=== PATIENT | female | born 1940 | race Caucasian/White ===

== ENCOUNTER 2023-09-15 06:47 | Emergency (ER) | payer MEDICARE, BC, SELFPAY ==
[2023-09-15 07:08] VITALS: BP 133/74
[2023-09-15 08:00] VITALS: BP 162/72
[2023-09-15] MEDS: MOTRIN 600 MG PO (08:24)
[2023-09-15] MEDS: PERCOCET 5/325 1 TABLET PO (08:24)
[2023-09-15 08:26] VITALS: BMI 21.1
[2023-09-15 08:30] VITALS: BP 162/84
--- NOTE | 2023-09-15 08:45 | ED.GENMED ---
History of Present Illness
General
Chief Complaint: Musculo-Skeletal Complaint
Source: patient
Exam Limitations: none
Time Seen by Provider: 09/15/23 08:05
Nursing documentation reviewed up to this point in time: agreed with
History of Present Illness
History of Present Illness:
The patient is an 83-year-old female with past medical history of low back surgery who comes in with complaints of severe bilateral neck pain. Patient reports that 2 mornings ago, she woke up with severe neck stiffness on both sides. Patient
reports that is hard for her to move her head from [id number]. She denies headache and vision changes. She denies tingling, numbness and weakness of her arms and legs. She reports she tried to take a muscle relaxer and Tylenol at home without
any relief. Patient reports that her neck feels so stiff that she is unable to move it and it is difficult for her to move around. Patient reports she generally does not have neck pain. Patient denies sore throat, rash and swollen glands
Past History
Past History
ED Past Medical History: Hypothyroidism, Psychiatric (depression) and Other (Chronic back pain)
ED Past Surgical History: Other (Low back surgery)
Social History
Tobacco: Former smoker
Alcohol: Occasional
Drug: None
Personal: Other
Living: alone
Employment: Retired
Family History
Family History: Other (Noncontributory)
Phy Exam
Physical Exam
Physical Exam:
Physical Exam
General: Patient sits upright with her neck completely still, with her head completely straight. Seems very hesitant to turn her head from [id number]. Patient appears nontoxic
Neck: No midline C-spine tenderness. Soft tissue tenderness along trapezius muscles bilaterally without any erythema, swelling or deformity. No cervical lymphadenopathy
Heart: s1/s2 regular rate and rhythm,
Lungs: no acute respiratory distress. clear bilaterally
Abdomen: Soft, no pulsatile mass
Neuro: alert and oriented. no focal neurological deficits. Face appears symmetric. Extraocular muscles intact. PERRL, 5 out of 5 strength in all extremities without drift
Skin: no rash
Psychiatric: well kept. interactive and cooperative
Extremities: no edema. Strong pulses of bilateral hands. Excellent cap refill bilateral hands.
Course
Orders/Labs/Results
Orders:
Orders
09/15/23 08:17
Ibuprofen [Motrin] 400 mg PO NOW STA
Ibuprofen [Motrin] 600 mg PO NOW STA
Oxycodone/Acetaminophen [Percocet 5/325] 1 tablet PO NOW STA
09/15/23 08:18
Cervical Spine 4 or 5 Vw [CR Cervical Spine 4 Or 5 Vw] Urgent
Comment:
Reason For Exam: bilateral neck pain for 2 days
Vital Signs
Initial and Last Documented VS:
Initial Vital Signs
Temp Pulse Resp BP Pulse Ox
98.1 F 75 16 133/74 98
09/15/23 07:08 09/15/23 07:08 09/15/23 07:08 09/15/23 07:08 09/15/23 07:08
Last Documented Vital Signs
Temp Pulse Resp BP Pulse Ox
98.1 F 71 21 162/84 96
09/15/23 07:08 09/15/23 08:34 09/15/23 08:34 09/15/23 08:30 09/15/23 08:00
MDM/Problems Addressed
Differential Diagnosis Includes:
Torticollis/musculoskeletal spasm, cervical radiculopathy
MDM/Problems Addressed:
Patient presents with acute neck pain
Acute Exacerbation and/or Progression of Chronic Illness:
Patient is acutely hypertensive likely due to pain
*Radiology
Radiology exam reviewed: preliminary read by ED provider (Cervical spine x-ray reviewed by me. No acute fracture seen) and radiology read reviewed
*Pulse Oximetry
Patient hypoxic: no
*EKG
Interpreted by ED Provider?: NA
*Tool And Fixture Repairer Interpretation
Rate: normal
Interpretation: normal
Rhythm: sinus
*Critical Care Note
Total Time (30-74mins, 75-104mins- exclusive of procedures): Not Applicable
Data Reviewed
Review of Other/Old Records Reveals: Radiology Studies (MRI of lumbar spine reviewed from 2021 which shows significant central canal stenosis)
Source: patient
Patient Management
Social determinants of health affecting care: Living situation and Strong social support
Escalation/DeEscalation of care consider admission/obs:
Patient feels so much better and is able to move her head and neck around freely. There is no sign of deep space infection. There are no neurological concerns to suggest vascular dissection. Patient likely has torticollis or cervical muscle spasm
of some kind.
ED Attending Note
-
Portions of this chart may have been created with voice recognition software.� Occasional wrong word or��sound alike� substitutions may have occurred due to the inherent limitations of voice recognition software.
Discharge Plan
Departure
Patient Disposition: Home (Routine Discharge)
Date of Disposition: 09/15/23
Time of Disposition: 10:23
Patient with high blood pressure during this ER visit?: Yes
Condition: Good
Covid-19: Not Applicable
Discharge Problem:
Acute neck pain
Instructions: Neck Pain ED, BLOOD PRESSURE
Prescriptions:
New
ibuprofen 600 mg tablet
600 mg PO TID PRN (Reason: Pain) Qty: 20 0RF
oxycodone 5 mg tablet
5 mg PO BID PRN (Reason: Pain) Qty: 7 0RF
No Action
sertraline 100 MG tablet
150 mg PO DAILY
bupropion HCl 300 MG tablet extended release 24 hr
300 mg PO DAILY
levothyroxine 100 mcg Tablet
100 mcg PO DAILY
multivitamin Tablet
1 tab PO DAILY
lutein 40 mg Capsule
40 mg PO DAILY
omega 6-rbc-jkl-fish oil [Fish Oil] 1,000 mg (120 mg-180 mg) Capsule
1 cap PO DAILY
cephalexin 500 mg capsule
500 mg PO QID Qty: 28 0RF
doxycycline hyclate 100 mg Tablet,Delayed Release (Dr/Ec)
100 mg PO .BIDX7D Qty: 14 0RF
Rx Instructions:
patient chicken picker on 09/19/22 #14
Referrals:
Evin Decker MD [Family Provider] -
Activity Restrictions/Additional Instructions:
Please take 600 mg of Motrin every 8 hours as needed for pain for the next 48 hours with food to help with the spasming in your neck. If needed, you could also take 1 oxycodone tablet if the pain is severe
Interventions
Interventions:
*Risk Screen - Suicide Last Done: 09/15/23 08:27
*General Assessment Last Done: 09/15/23 08:26
*Neglect/Abuse Screening Last Done: 09/15/23 08:26
*ED COVID-19 Vaccine History Last Done: 09/15/23 08:26
ED-Musculoskeletal Assessment Last Done: 09/15/23 08:28
Discharge Date and Time
Print Language: GREEK
== END 2023-09-15 11:09 | disposition home or self-care (01) ==
LOC: EMR 06:47
PROVIDERS: EMERGENCY PHYSICIAN Emergency Medicine; FAMILY PHYSICIAN Internal Medicine
DX: M54.2 Cervicalgia (principal); E03.9 Hypothyroidism, unspecified; F32.A Depression, unspecified; G89.29 Other chronic pain; M54.9 Dorsalgia, unspecified; I10 Essential (primary) hypertension; Z87.891 Personal history of nicotine dependence
CPT/HCPCS: 99283; 72050

== ENCOUNTER → 2023-12-04 11:41 | Outpatient (REF) | payer MEDICARE, BC, SELFPAY | LOC: RAD 11:41 | PROVIDERS: FAMILY PHYSICIAN Internal Medicine | DX: R07.81 Pleurodynia (principal) | CPT/HCPCS: 71046 ==

== ENCOUNTER 2024-11-22 14:38 | Inpatient (IN) | payer MEDICARE, OTHER, SELFPAY ==
[2024-11-22 10:56] VITALS: BP 136/75
--- NOTE | 2024-11-22 10:59 | ED.GENMED ---
History of Present Illness
<ROSI Britt - Last Filed: 11/22/24 13:37>
General
Chief Complaint: Musculo-Skeletal Complaint
Source: patient
Exam Limitations: none
Time Seen by Provider: 11/22/24 10:54
Nursing documentation reviewed up to this point in time: agreed with
History of Present Illness
History of Present Illness:
Patient is a 4-year-old female who presents to the ER complaint of left hip pain. Patient was outside watering her yard and tripped on her hose landing on her left hip on the patio. She denies hitting her head. She claims of pain to the left hip.
She came via EMS and was given fentanyl and route but continues to have pain. No other injuries. She is not on blood thinners.
Past History
<ROSI Britt - Last Filed: 11/22/24 13:37>
Past History
ED Past Medical History: Hypothyroidism, Psychiatric (depression) and Other (Chronic back pain)
ED Past Surgical History: Other (Low back surgery)
Social History
Tobacco: Former smoker
Alcohol: Occasional
Drug: None
Personal: Other
Living: alone
Employment: Retired
Family History
Family History: Other (Noncontributory)
Phy Exam
<ROSI Britt - Last Filed: 11/22/24 13:37>
General Physical Exam
General Presentation: well appearing
General age: appears stated age
General Skin: warm and dry
General Habitus: normal
General Mental: alert
General Hydration: appears well hydrated
Cardiovascular Exam
Cardiovascular Exam: regular rate/rhythm, no murmur and normal peripheral pulses
Pulmonary Exam
Pulmonary Exam: lungs clear and no respiratory distress
Neurological Exam
Neurological Exam: alert and oriented x3
Musculoskeletal Exam
Musculoskeletal Exam: other (pain with any ROM to left hip )
Skin Exam
Skin Exam: normal color and warm/dry
Psychiatric Exam
Psychiatric Exam: normal mood/affect
Course
<ROSI Britt - Last Filed: 11/22/24 13:37>
Orders/Labs/Results
Orders:
Orders
11/22/24 11:03
0.9% Sodium Chloride 1000 ml [Nss] 1,000 ml IV BOLUS
Morphine Sulfate 4 mg .ROUTE .STK-MED ONE
Morphine Sulfate 4 mg IV NOW STA
Ondansetron Injectable [Zofran] 4 mg .ROUTE .STK-MED ONE
11/22/24 11:49
Morphine Sulfate 4 mg IV NOW STA
11/22/24 11:51
Hip, Left 2-3 Views [CR Hip - LT w/wo Pel 2-3 Vw*] Urgent
Comment:
Reason For Exam: trauma
Include a pelvis x-ray?: Yes
11/22/24 12:18
Cardiac Monitoring- Treatment ONCE
IV Insert/Care/Rem.- Treatment PRN
Complete Blood Count/With Diff Urgent
Comprehensive Metabolic Panel Urgent
HYDROmorphone [Dilaudid] 0.5 mg IV NOW STA
11/22/24 12:19
Electrocardiogram (*1) Stat
Reason for Study: Abdominal Pain
EKG- Treatment ONCE
11/22/24 13:32
HYDROmorphone [Dilaudid] 0.5 mg IV NOW STA
Vital Signs
Initial and Last Documented VS:
Initial Vital Signs
Temp Pulse Resp BP Pulse Ox
98 F 67 18 136/75 99
11/22/24 10:56 11/22/24 10:56 11/22/24 10:56 11/22/24 10:56 11/22/24 10:56
Last Documented Vital Signs
Temp Pulse Resp BP Pulse Ox
98 F 67 18 136/75 99
11/22/24 10:56 11/22/24 10:56 11/22/24 10:56 11/22/24 10:56 11/22/24 10:56
<Ray Frank MD - Last Filed: 11/22/24 12:35>
Orders/Labs/Results
Orders:
Orders
11/22/24 11:03
0.9% Sodium Chloride 1000 ml [Nss] 1,000 ml IV BOLUS
Morphine Sulfate 4 mg .ROUTE .STK-MED ONE
Morphine Sulfate 4 mg IV NOW STA
Ondansetron Injectable [Zofran] 4 mg .ROUTE .STK-MED ONE
11/22/24 11:49
Morphine Sulfate 4 mg IV NOW STA
11/22/24 11:51
Hip, Left 2-3 Views [CR Hip - LT w/wo Pel 2-3 Vw*] Urgent
Comment:
Reason For Exam: trauma
Include a pelvis x-ray?: Yes
11/22/24 12:18
Cardiac Monitoring- Treatment ONCE
IV Insert/Care/Rem.- Treatment PRN
Complete Blood Count/With Diff Urgent
Comprehensive Metabolic Panel Urgent
HYDROmorphone [Dilaudid] 0.5 mg IV NOW STA
11/22/24 12:19
Electrocardiogram (*1) Stat
Reason for Study: Abdominal Pain
EKG- Treatment ONCE
11/22/24 13:32
HYDROmorphone [Dilaudid] 0.5 mg IV NOW STA
Vital Signs
Initial and Last Documented VS:
Initial Vital Signs
Temp Pulse Resp BP Pulse Ox
98 F 67 18 136/75 99
11/22/24 10:56 11/22/24 10:56 11/22/24 10:56 11/22/24 10:56 11/22/24 10:56
Last Documented Vital Signs
Temp Pulse Resp BP Pulse Ox
98 F 67 18 136/75 99
11/22/24 10:56 11/22/24 10:56 11/22/24 10:56 11/22/24 10:56 11/22/24 10:56
<ROSI Britt - Last Filed: 11/22/24 13:37>
MDM/Problems Addressed
Differential Diagnosis Includes:
Not limited to hip fracture, contusion, dislocation
MDM/Problems Addressed:
Patient is an 84-year-old female who sustained a fall injuring her left hip. There is a subcapital left femoral neck fracture. Patient denies hitting her head. She has not on blood thinners. Case discussed ED physician evaluated patient Ortho
made aware
<ROSI Britt - Last Filed: 11/22/24 13:37>
*Radiology
Radiology exam reviewed: radiology read reviewed
*Pulse Oximetry
SaO2: 99
Oxygen Mode of Delivery: Room air
Patient hypoxic: no
*Critical Care Note
Total Time (30-74mins, 75-104mins- exclusive of procedures): Not Applicable
<ROSI Britt - Last Filed: 11/22/24 13:37>
Patient Management
Discussion with other providers: Hole Digger Operator (ortho dR Rivero )
ED Attending Note
<ROSI Britt - Last Filed: 11/22/24 13:37>
-
Portions of this chart may have been created with voice recognition software.� Occasional wrong word or��sound alike� substitutions may have occurred due to the inherent limitations of voice recognition software.
<Ray Frank MD - Last Filed: 11/22/24 12:35>
ED Attending Note
Patient seen and examined by attending physician: Yes
I performed the substantive portion of visit, reviewed & personally made and approve the management plan that is documented in note by myself or JEANINE.: Yes
ED Attending Note:
Patient tripped and fell. Landing on her left hip. No LOC. No syncope. Mild right wrist pain but no other injury. No head injury.
TRAUMA EXAM:
VITAL SIGNS: Vital signs reviewed, cooperative
DISTRESS: No active disease
EYES: Pupils reactive, no orbital trauma
NOSE: No deformity or epistaxis
FACE AND SCALP: No scalp or facial trauma, external canals no blood
NECK: Supple nontender
RESPIRATORY: No distress, no tender chest wall
CARDIAC: Regular rate and rhythm
SKIN: Skin intact no bleeding, color normal
EXTREMITIES: Left hip flexed. Shortened. Significant pain with rotation. Left knee normal. Good distal pulses and color. Very very minimal right wrist tenderness. No other joint abnormalities
NEUROLOGICAL: Alert, oriented, no motor deficits
PSYCH: Mood affect normal
X-ray shows a acute subcapital fracture of the left femoral neck. Keep n.p.o. for now. Referred to orthopedist and hospitalist
Discharge Plan
Departure
Patient Disposition: Admit
Date of Disposition: 11/22/24
Time of Disposition: 13:36
Admit to: Med/Surg
Admit to doctor: hospitalist
Presentation/result/management discussed w/ accepting MD/DO: Hospitalist
Patient with high blood pressure during this ER visit?: Yes
Condition: Fair
Covid-19: Not Applicable
Discharge Problem:
Closed fracture of left hip
Prescriptions:
No Action
sertraline 100 MG tablet
150 mg PO DAILY
bupropion HCl 300 MG tablet extended release 24 hr
300 mg PO DAILY
levothyroxine 100 mcg Tablet
100 mcg PO DAILY
multivitamin Tablet
1 tab PO DAILY
lutein 40 mg Capsule
40 mg PO DAILY
omega 5-ebg-vwa-fish oil [Fish Oil] 1,000 mg (120 mg-180 mg) Capsule
1 cap PO DAILY
cephalexin 500 mg capsule
500 mg PO QID Qty: 28 0RF
doxycycline hyclate 100 mg Tablet,Delayed Release (Dr/Ec)
100 mg PO .BIDX7D Qty: 14 0RF
Rx Instructions:
patient picker and packer on 09/19/22 #14
ibuprofen 600 mg tablet
600 mg PO TID PRN (Reason: Pain) Qty: 20 0RF
oxycodone 5 mg tablet
5 mg PO BID PRN (Reason: Pain) Qty: 7 0RF
Referrals:
Evin Decker MD [Family Provider, Internal Medicine]
Interventions
Interventions:
*Risk Screen - Suicide Last Done: 11/22/24 10:56
*General Assessment Last Done: 11/22/24 10:56
*Neglect/Abuse Screening Last Done: 11/22/24 10:56
ED-Musculoskeletal Assessment Last Done: 11/22/24 11:48
Discharge Date and Time
Print Language: SWEDISH
[2024-11-22 11:00] VITALS: BP 136/75
[2024-11-22] MEDS: MORPHINE SULFATE 4 MG IV ×2 (11:06→11:50)
[2024-11-22] MEDS: NSS 1000 IV (11:06)
[2024-11-22 11:48] VITALS: BMI 21.8
[2024-11-22] MEDS: DILAUDID 0.5 MG IV ×3 (12:23→14:23)
[2024-11-22 13:52] LABS: Hematocrit 31.2 % (37.0-47.0); Hemoglobin 11.5 g/dL (12.0-16.0); Mean Corp Hgb Conc. 36.9 g/dL (33.0-37.0); Mean Corpuscular Volume 94.8 fL (81.0-99.0); Nucleated Red Blood Cells % 0 %; Platelet Count 154 10^3/uL (130-400); Red Cell Dist. Width 14.1 % (11.5-14.5)
--- NOTE | 2024-11-22 13:57 | HPS.HSE ---
Family Physician
-
Family Physician: Evin Decker
Chief Complaint
-
left hip pain
History of Present Illness
Ms. Willy Felix is a 84 yo woman with hx hypothyroidism, depression presents to the ER with left hip pain after a fall in her yard earlier today.
She tripped over a hose. Patient received multiple morphine and Dilaudid in ER and remains in significant pain.
No history CAD or pulmonary issues. No recent chest pain or shortness of breath. No abdominal pain. No LE swelling. Eating and drinking well. She had spine surgery several years ago and reports worsening neuropathy recently.
Medical History
Past Medical History
Past Medical History: Reports Other (Hypothyroidism, Depression)
Past Surgical History: Reports Orthopedic
Social History
Tobacco: Non-smoker
Alcohol: None
Family History
Family History: Not pertinent
Allergies / Home Medications
Allergies reflects when Allergies were last updated in [facility].
Home Medications with original date entered in [facility]
Allergy/Medication List:
Allergies
Allergy/AdvReac Type Severity Reaction Status Date / Time
Sulfa (Sulfonamide Allergy Unknown Unknown-chi Verified 11/13/22 20:42
Antibiotics) lhood
Bees Allergy swelling, Uncoded 11/13/22 20:42
redness
Home Medications
bupropion HCl 300 mg 24 hr tablet, extended release 300 mg PO DAILY Mental Health/Anxiety 03/27/20
sertraline 100 mg tablet 150 mg PO DAILY Mental Health/Anxiety 03/27/20
levothyroxine 100 mcg tablet 100 mcg PO DAILY Thyroid 02/23/22
lutein 40 mg capsule 40 mg PO DAILY Supplement 02/23/22
multivitamin 1 tab PO DAILY Supplement 02/23/22
loratadine 10 mg tablet (Claritin) 10 mg PO DAILY 11/22/24
Review of Systems
-
History Source: Patient
A 12 point ROS was completed and negative except as noted: Yes
Physical Exam
Vital Signs
Vital Signs
Temp Pulse Resp BP Pulse Ox
98 F 67 18 136/75 99
11/22/24 10:56 11/22/24 10:56 11/22/24 10:56 11/22/24 10:56 11/22/24 13:37
Physical Exam
General: No Apparent Distress
HEENT: PERRLA
Respiratory: Clear; No Wheezes
Cardiac: S1/S2 and Regular Rhythm
GI: Soft and Non Tender
Musculoskeletal: No Edema
Skin: Warm and Dry; No Rash
Neuro: AO x 3
Psych: Anxious
Laboratory Results
-
11/22/24 13:45
Data Reviewed
-
Diagnostic Radiology: Report Reviewed by me
Lab Data: Labs Reviewed by me
Impression/Plan
-
Ms. Willy Felix is a 84 yo woman with hx hypothyroidism, depression presents to the ER with left hip pain after a fall in her yard earlier today.
Triage VS: T 98, P 67, RR 18, BP 136/75, SpO2 99%
LABS: WBC 11.7, Hg 11.5, PLT 154, Na
Hip X-Ray
IMPRESSION:
ACUTE SUBCAPITAL FRACTURE of the LEFT FEMORAL NECK.
MAR: Dilaudid, Morphine, Fluids
Acute left femoral neck fracture
-admit to med/surg
-Ortho consulted
-patient medically cleared for surgery; no cardiac history or recent symptoms of ACS
-regular diet, NPO after MN for OR tomorrow
-difficulty with pain control in the ER; she did not respond to morphine or 0.5 dilaudid; will order 1mg Dilaudid IV q 3 hours PRN
-standing Tylenol, ice packs, lidocaine patch
-SCD for DVT PPx pre-op
Neuropathy
-patient reports worsening b/l LE neuropathy over past year
-trial low dose Gabapentin - increase as tolerated
Hypothyroidism
-GLUE DRIER OPERATOR Synthroid
Depression
-GLUE DRIER OPERATOR Wellbutrin
DVT PPx SCD
FULL CODE
[2024-11-22 14:04] LABS: ALT (SGPT) 25 U/L (0-35); AST (SGOT) 23 U/L (14-36); Albumin 3.7 g/dl (3.5-5.0); Alkaline Phosphatase 58 U/L (38-126); Blood Urea Nitrogen 12 mg/dl (7-17); Calcium 8.7 mg/dl (8.4-10.2); Carbon Dioxide 24 mmol/L (22-30); Chloride 109 mmol/L (98-107); Estimated Creatinine Clearance 69 ml/min; Glucose 98 mg/dl (70-99); Potassium 4.1 mmol/L (3.5-5.1); Sodium 136 mmol/L (135-145); Total Protein 6.2 g/dl (6.3-8.2); eGFR > 60.00
[2024-11-22] MEDS: OFIRMEV 100 IV (14:04)
[2024-11-22] MEDS: LIDOCAINE 4% PATCH 1 PATCH TOPICAL (14:35)
--- NOTE | 2024-11-22 15:30 | EDCM ---
CM reviewed chart and met with pt bedside in ED. Lives alone in multistory home, 2 DO, has first floor full bath and stair glide to second floor bedroom.
Independent in ADLs, personal care and ambulation at baseline. No assistive devices. Still driving.
Confirms prescription coverage.
No hx VN or SNF.
PCP: Evin Decker
Pharmacy: [facility]
CM will continue to follow for all discharge planning needs.
[2024-11-22] MEDS: DILAUDID 1 MG IV ×2 (16:03→22:21)
[2024-11-22 16:53] VITALS: BMI 23.0
[2024-11-22 17:00] VITALS: BP 128/58
[2024-11-22] MEDS: TORADOL 15 MG IV (18:04)
--- NOTE | 2024-11-22 20:35 | W.PN.UPDATE ---
Update Note
Progress Note Update
Full consult dictated. 84 yo female s/p fall. Brought to [facility] and radiographs revealed a displaced left femoral neck fracture. History of depression, hypothroidism and peripheral neuropathy. Patient lives alone and daughter at her bedside. Have
discussed treatment options. Plan for surgery tomorrow for left hip hemiarthroplasty vs THR. Risks, complications, benefits, and postop expectations discussed. NPO after MN. For OR as OR tomorrow. Dr. Alcaraz or myself to proceed with surgery
tomorrow.
[2024-11-22] MEDS: TYLENOL 1000 MG PO (20:38)
[2024-11-22] MEDS: NEURONTIN 100 MG PO (20:39)
[2024-11-22] MEDS: FLUSH (NSS) 2 FLUSH IV (22:22)
[2024-11-22 23:00] VITALS: BP 129/57
--- NOTE | 2024-11-22 23:36 | W.PN.UPDATE ---
Update Note
Progress Note Update
-Patient is complaining of sob, denies chest pain. Afebrile. BP 150/66, hr 113, SPO2 95% RA.
-Clear lung sound, no wheezing or crackle noted on the chest exam.
chest x-ray, covid, flu, trop, cbc, bmp, map and vbg, EKG ordered.
-Duo nebs PRN.
-Neg covid &flu
-Unremarkable lab/vbg result.
-Chest x-ray result is pending.
[2024-11-23] VITALS (10 sets, daily range): BP systolic 102–126; BP diastolic 48–74
[2024-11-23] MEDS: TORADOL 15 MG IV (00:05)
[2024-11-23] MEDS: FLUSH (NSS) 2 FLUSH IV ×2 (00:05→04:05)
[2024-11-23] MEDS: REMOVE LIDOCAINE PATCH 1 PATCH REMOVE (00:06)
[2024-11-23 00:10] LABS: Venous Blood Gas B.E. 0.3 mmol/L (-4 to +4); Venous Blood Gas O2 Sat % 94.8 %
[2024-11-23 00:35] LABS: Blood Urea Nitrogen 12 mg/dl (7-17); Calcium 9.2 mg/dl (8.4-10.2); Carbon Dioxide 25 mmol/L (22-30); Chloride 102 mmol/L (98-107); Estimated Creatinine Clearance 59 ml/min; Glucose 155 mg/dl (70-99); Magnesium 1.9 mg/dl (1.6-2.3); Potassium 4.5 mmol/L (3.5-5.1); Sodium 133 mmol/L (135-145); eGFR > 60.00
[2024-11-23 00:36] LABS: COVID-19 Antigen Negative (Negative)
[2024-11-23 00:47] LABS: Troponin I < 0.012 ng/ml
[2024-11-23] MEDS: DUONEB 3 ML INH (00:51)
[2024-11-23 01:02] LABS: Hematocrit 37.8 % (37.0-47.0); Hemoglobin 12.7 g/dL (12.0-16.0); Mean Corp Hgb Conc. 33.6 g/dL (33.0-37.0); Mean Corpuscular Volume 93.6 fL (81.0-99.0); Platelet Count 166 10^3/uL (130-400); Red Cell Dist. Width 13.2 % (11.5-14.5)
--- NOTE | 2024-11-23 02:10 | PTCARENOTE ---
Around 2320 pt. started coughing and stated she was choking. Upon initial assessment pt. looked visibly distraught and had no insight as to what had happened other then she started coughing. Vitals stable, lungs clear, but pt. breathing shallow
stating 'my chest feels heavy, I can't get a deep breath'. House MARKETING CONSULTANT contacted, EKG obtained, placed on 2L NC for comfort and instructed on deep breathing techniques. Pt. trembling at a point but denied being cold. Upon further assessment pt. did
admit to feeling scared regarding orthopedic surgery tomorrow. House MARKETING CONSULTANT at bedside to assess pt. Labs drawn, chest x-ray performed, and nebulizer treatment given. Pt. observed to be sleeping ~0045.
[2024-11-23] MEDS: DILAUDID 1 MG IV ×2 (04:04→08:08)
[2024-11-23] MEDS: SYNTHROID PO (08:05)
[2024-11-23] MEDS: CLARITIN 10 MG PO (08:06)
[2024-11-23] MEDS: WELLBUTRIN XL (24 hour extended release) 300 MG PO (08:06)
[2024-11-23] MEDS: ZOLOFT 150 MG PO (08:07)
[2024-11-23] MEDS: TYLENOL 1000 MG PO ×3 (08:07→21:21)
[2024-11-23] MEDS: LIDOCAINE 4% PATCH 1 PATCH TOPICAL (08:08)
[2024-11-23 08:25] LABS: Blood Urea Nitrogen 14 mg/dl (7-17); Calcium 8.9 mg/dl (8.4-10.2); Carbon Dioxide 28 mmol/L (22-30); Chloride 103 mmol/L (98-107); Estimated Creatinine Clearance 59 ml/min; Glucose 122 mg/dl (70-99); Magnesium 2.0 mg/dl (1.6-2.3); Potassium 4.0 mmol/L (3.5-5.1); Sodium 134 mmol/L (135-145); eGFR > 60.00
--- NOTE | 2024-11-23 08:32 | W.PN.UPDATE ---
Update Note
Progress Note Update
Patient resting, reasonably comfortable. Anxious for surgery so she can get back on her feet. Plan for the OR is around lunchtime via Dr. Alcaraz. She has been blood and surgical consented for a LEFT SILVIO by Dr. Rivero earlier this AM. Bedrest for
now. Remain NPO. ABX/irrigation products OCTOR. T&S completed. Will follow
[2024-11-23 09:20] LABS: Hematocrit 35.6 % (37.0-47.0); Hemoglobin 11.6 g/dL (12.0-16.0); Mean Corp Hgb Conc. 32.6 g/dL (33.0-37.0); Mean Corpuscular Volume 95.7 fL (81.0-99.0); Nucleated Red Blood Cells % 0 %; Platelet Count 153 10^3/uL (130-400); Red Cell Dist. Width 13.2 % (11.5-14.5)
--- NOTE | 2024-11-23 09:59 | CM ---
Reviewed the chart notes and spoke with the patient at the bedside. Patient anticipates going to the OR today for a left SILVIO. Patient aware of possible need for SNF/rehab placement prior to returning home. CM continues to be available to
patient/family and is monitoring medical plan for needs at discharge.
Plan: Discharge to SNF/rehab once medically stable. No precert required.
--- NOTE | 2024-11-23 14:08 | W.PN.HOSP.TC ---
Today's Communication/Plan
-
see outlined plan below
Assessment / Plan
Assessment / Plan
Assessment:
Acute left femoral neck fracture, traumatic from fall
- s/p L hip total arthroplasty 11/23
- Post-op PT/OT
- pain control + bowel regimen
- ASA for DVT ppx
- Orthopedics managing
chronic Neuropathy
- patient reports worsening b/l LE neuropathy over past year
- trial low dose Gabapentin - increase as tolerated
Hypothyroidism
- Synthroid
Depression
- Wellbutrin/Zoloft
DVT ppx: ASA + SCDs
Code: Full
Anticipated Discharge: > 48 hours
Subjective/Interval History
-
Date of Service: November 23, 2024
seen prior to OR, reported controlled L hip pain
Objective Data
-
Labs:
Laboratory Results
11/23/24
07:45
WBC 10.4
Hgb 11.6 L
Hct 35.6 L
Plt Count 153
Sodium 134 L
Potassium 4.0
Chloride 103
Carbon Dioxide 28
BUN 14
Creatinine 0.7
Glucose 122 H
Calcium 8.9
Vital Signs:
Vital Signs
Temp Pulse Resp BP Pulse Ox
98 F 66 16 122/57 95
11/23/24 07:45 11/23/24 07:45 11/23/24 07:45 11/23/24 07:45 11/23/24 12:17
I&O
11/22/24 11/23/24 11/24/24
06:59 06:59 06:59
Output Total 800 / 800
Balance -800 / -800
Physical Exam
-
HEENT: Normocephalic and Atraumatic
Respiratory: Negative Wheezes
Cardiac: Regular Rhythm and S1/S2
Genito-urinary: No Costovertebral Tender
Neuro: AO x 3
Psych: Calm
Data Reviewed
-
Total Time Spent with Patient (in minutes): 45
Labs: Labs Reviewed by me
--- NOTE | 2024-11-23 14:58 | PTCARENOTE ---
1455 Pt arrived back from PACU in bed. VSS. 2LO2. Aquacel C/D/I. at bed side.
[2024-11-23] MEDS: ASPIRIN 325 MG PO (18:19)
[2024-11-23] MEDS: ANCEF 5 IV (19:25)
[2024-11-23] MEDS: COLACE 100 MG PO (21:21)
[2024-11-23] MEDS: NEURONTIN 100 MG PO (21:21)
[2024-11-23] MEDS: SENOKOT PO (21:22)
[2024-11-23] MEDS: REMOVE LIDOCAINE PATCH REMOVE (21:22)
[2024-11-23] MEDS: BACTROBAN 2% OINTMENT 1 APPLIC NASAL (21:25)
[2024-11-23] MEDS: ROXICODONE 2.5 MG PO (21:40)
[2024-11-24] VITALS (7 sets, daily range): BP systolic 101–123; BP diastolic 47–74; PULSE 76–77
[2024-11-24] MEDS: ANCEF 5 IV (03:22)
[2024-11-24] MEDS: FLUSH (NSS) 1 FLUSH IV (03:23)
[2024-11-24] MEDS: ROXICODONE 2.5 MG PO (03:25)
[2024-11-24] MEDS: SYNTHROID 100 MCG PO (03:26)
--- NOTE | 2024-11-24 07:15 | W.PN.ORTHO ---
Today's Communication / Plan
-
84 yo F POD1 left total hip arthroplasty for femoral neck fracture under the direction of Dr. Alcaraz
--WBAT to LLE with walker. THPs x6-8 weeks. We appreciate the assistance of PT/OT.
--Recommend ASA 325 mg daily x4 weeks for DVT ppx.
--Pain control prn. Ice and elevation for edema control.
--Hgb pending this AM. Continue to monitor.
--Maintain surgical dressing until 7-10 days post-op. Staple removal at 2 weeks post-op.
--Case management consult for dc planning.
--Orthopedics will continue to follow along.
Assessment
.
Distal Motor Intact: Yes
Dressing:
Clean, dry and intact.
Plan
.
Surgery / Date: L SILVIO for fracture
DVT Prophylaxis: Aspirin
Activity:
Out of bed.
PT/OT
Subjective
.
.:
Ms. Felix is POD1 following her left total hip arthroplasty for femoral neck fracture performed by Dr. Alcaraz. She is resting comfortably in bed this morning. She endorses aching pain about the hip, but otherwise reports she is doing well. She has
no questions or concerns at this time.
Vital Signs and Labs
.
Vital Signs and Labs:
Temp Pulse Resp BP Pulse Ox
98.1 F 82 16 108/50 92
11/24/24 03:10 11/24/24 03:10 11/23/24 23:21 11/24/24 03:10 11/24/24 03:10
Physical Exam
-
Directed exam of the left lower extremity reveals surgical dressing clean, dry and intact. No significant tenderness to palpation about the hip. Thigh soft and compressible. Calf soft and nontender. Patient able to wiggle toes, plantar and dorsiflex
ankle. NVID.
[2024-11-24] MEDS: WELLBUTRIN XL (24 hour extended release) 300 MG PO (07:43)
[2024-11-24] MEDS: ZOLOFT 150 MG PO (07:43)
[2024-11-24] MEDS: TYLENOL 1000 MG PO ×3 (07:44→21:28)
[2024-11-24] MEDS: CLARITIN 10 MG PO (07:44)
[2024-11-24] MEDS: SENOKOT 17.2 MG PO ×2 (07:44→20:14)
[2024-11-24] MEDS: COLACE 100 MG PO ×2 (07:44→20:14)
[2024-11-24] MEDS: ASPIRIN 325 MG PO (07:44)
[2024-11-24] MEDS: BACTROBAN 2% OINTMENT 1 APPLIC NASAL ×2 (07:45→20:14)
[2024-11-24] MEDS: LIDOCAINE 4% PATCH 1 PATCH TOPICAL (07:46)
[2024-11-24 07:48] LABS: Blood Urea Nitrogen 10 mg/dl (7-17); Calcium 8.4 mg/dl (8.4-10.2); Carbon Dioxide 26 mmol/L (22-30); Chloride 106 mmol/L (98-107); Estimated Creatinine Clearance 69 ml/min; Glucose 133 mg/dl (70-99); Potassium 4.3 mmol/L (3.5-5.1); Sodium 136 mmol/L (135-145); eGFR > 60.00
[2024-11-24] MEDS: ROXICODONE 5 MG PO (07:59)
[2024-11-24 08:05] LABS: Hematocrit 29.8 % (37.0-47.0); Hemoglobin 9.9 g/dL (12.0-16.0); Mean Corp Hgb Conc. 33.2 g/dL (33.0-37.0); Mean Corpuscular Volume 94.3 fL (81.0-99.0); Platelet Count 143 10^3/uL (130-400); Red Cell Dist. Width 12.8 % (11.5-14.5)
--- NOTE | 2024-11-24 09:50 | W.PN.HOSP.TC ---
Today's Communication/Plan
-
PT/OT evals
continue ASA for DVT ppx; follow Hb
Assessment / Plan
Assessment / Plan
Assessment:
Acute left femoral neck fracture, traumatic from fall
- s/p L hip total arthroplasty 11/23.
- WBAT to LLE with walker. THPs x6-8 weeks
- Post-op PT/OT eval pending
- pain control + bowel regimen
- ASA for DVT ppx x 4 weeks
- Orthopedics OP f/u. Maintain surgical dressing until 7-10 days post-op. Staple removal at 2 weeks post-op.
chronic Neuropathy
- patient reports worsening b/l LE neuropathy over past year
- continue trial low dose Gabapentin - increase as tolerated
Hypothyroidism
- Synthroid
Depression
- Wellbutrin/Zoloft
Acute blood loss anemia, operative loss
- monitor Hb
DVT ppx: ASA + SCDs
Code: Full
Anticipated Discharge: 24 - 48 hours
Subjective/Interval History
-
Date of Service: November 24, 2024
reports pain is well controlled, about 4-5/10
eager for PT eval
Objective Data
-
Labs:
Laboratory Results
11/24/24
06:56
WBC 14.5 H
Hgb 9.9 L
Hct 29.8 L
Plt Count 143
Sodium 136
Potassium 4.3
Chloride 106
Carbon Dioxide 26
BUN 10
Creatinine 0.6
Glucose 133 H
Calcium 8.4
Vital Signs:
Vital Signs
Temp Pulse Resp BP Pulse Ox
98.3 F 77 16 116/57 92
11/24/24 07:00 11/24/24 07:00 11/24/24 07:00 11/24/24 07:00 11/24/24 07:00
I&O
11/23/24 11/24/24 11/25/24
06:59 06:59 06:59
Intake Total 390 / 390
Output Total 800 / 800
Balance -410 / -410
Physical Exam
-
General: No Apparent Distress
HEENT: Normocephalic and Atraumatic
Respiratory: Negative Wheezes
Cardiac: Regular Rhythm and S1/S2
GI: Soft
Genito-urinary: No Costovertebral Tender
Neuro: AO x 3
Psych: Calm
Data Reviewed
-
Total Time Spent with Patient (in minutes): 42
Labs: Labs Reviewed by me
--- NOTE | 2024-11-24 10:46 | CM ---
Addendum entered by Sri Lopez RN 11/24/24 10:57:
Correction: Sindhu's phone number is ([phone]).
Original Note:
Reviewed the chart notes and spoke with the patient at the bedside. Permission received to speak with the patient's daughter Sindhu Felix ([phone]). Updated Sindhu on patient's interest in [facility] for short term rehab. Sindhu inquired
about acute rehab. CM explained PT/OT evaluations pending for their recommendations. CM continues to be available to patient/family and is monitoring medical plan for needs at discharge.
Plan: Discharge to SNF/rehab once bed secured. No precert required.
[2024-11-24] MEDS: REMOVE LIDOCAINE PATCH 1 PATCH REMOVE (20:14)
[2024-11-24] MEDS: NEURONTIN 100 MG PO (21:27)
[2024-11-24] MEDS: DILAUDID 0.5 MG IV (21:28)
--- NOTE | 2024-11-25 00:23 | PTCARENOTE ---
pt requested her Synthroid as per pt when she requested her med this morning she was told it will e given at 18:00. Pt was educated regarding med and administration hours, pt understood she was unable to receive med until 06:001, pt agreed .
[employer] was notified .
[2024-11-25] MEDS: SYNTHROID 100 MCG PO (05:55)
[2024-11-25] MEDS: ROXICODONE 5 MG PO ×2 (06:15→15:07)
[2024-11-25 08:19] VITALS: BP 111/48
[2024-11-25 08:28] LABS: Blood Urea Nitrogen 12 mg/dl (7-17); Calcium 8.4 mg/dl (8.4-10.2); Carbon Dioxide 29 mmol/L (22-30); Chloride 105 mmol/L (98-107); Estimated Creatinine Clearance 69 ml/min; Glucose 110 mg/dl (70-99); Potassium 4.0 mmol/L (3.5-5.1); Sodium 136 mmol/L (135-145); eGFR > 60.00
[2024-11-25 08:52] LABS: Hematocrit 27.1 % (37.0-47.0); Hemoglobin 9.0 g/dL (12.0-16.0); Mean Corp Hgb Conc. 33.2 g/dL (33.0-37.0); Mean Corpuscular Volume 95.1 fL (81.0-99.0); Platelet Count 129 10^3/uL (130-400); Red Cell Dist. Width 13.4 % (11.5-14.5)
--- NOTE | 2024-11-25 09:26 | W.PN.ORTHO ---
Today's Communication / Plan
-
84-year-old female postop day 1 left total hip arthroplasty with Dr. Alcaraz
- Weightbearing as tolerated. Posterior hip or cautions x 6 weeks.
- PT/OT/discharge planning.
- DVT PPx: ASA either 81 mg twice daily or 325 mg daily x 4 weeks unless recommended otherwise per primary
- Diet per primary
- Pain regimen in place
- Orthopedic surgery will continue to follow
Patient also mentions some left wrist discomfort since her fall; minimal swelling on exam. Recommend x-rays and consideration of splinting but unlikely for operative intervention but may need a supportive brace for better utilization of her walker.
Pending x-rays and likely brace ordered
Assessment
.
Distal Motor Intact: Yes
Dressing:
Clean, dry and intact.
Plan
.
Surgery / Date: L SIL[facility]IO for fracture w/ Dr. Alcaraz
DVT Prophylaxis: Aspirin
Activity:
Out of bed.
PT/OT
Subjective
.
.:
Patient resting comfortably.
Vital Signs and Labs
.
Vital Signs and Labs:
Lab Results
11/25/24 07:00
11/25/24 07:00
Temp Pulse Resp BP Pulse Ox
99.1 F 84 18 111/48 94
11/25/24 08:19 11/25/24 08:19 11/25/24 08:19 11/25/24 08:19 11/25/24 08:19
--- NOTE | 2024-11-25 09:34 | CM ---
Reviewed the chart notes and spoke with the patient at the bedside. IMM reviewed. [facility] can accept patient. Attending updated. Patient's daughter Sindhu updated. Per daughter, patient will need to be transported via wheelchair van.
Transportation options and estimation of wheelchair van costs explained (approx. $100 to $125 est) and accepted.
Plan: Discharge to [facility] when medically stable via w/c van.
Call report to: [phone]
Fax report to: [phone]
Transport form to be completed.
[2024-11-25] MEDS: LIDOCAINE 4% PATCH 1 PATCH TOPICAL (09:40)
[2024-11-25] MEDS: TYLENOL 1000 MG PO (09:41)
[2024-11-25] MEDS: COLACE 100 MG PO (09:41)
[2024-11-25] MEDS: CLARITIN 10 MG PO (09:41)
[2024-11-25] MEDS: ZOLOFT 150 MG PO (09:41)
[2024-11-25] MEDS: ASPIRIN 325 MG PO (09:41)
[2024-11-25] MEDS: WELLBUTRIN XL (24 hour extended release) 300 MG PO (09:42)
[2024-11-25] MEDS: SENOKOT 17.2 MG PO (09:42)
[2024-11-25 10:24] VITALS: BP 107/54; PULSE 97
--- NOTE | 2024-11-25 13:10 | W.PN.HOSP.TC ---
Today's Communication/Plan
-
dc to SNF later today
Assessment / Plan
Assessment / Plan
Assessment:
Acute left femoral neck fracture, traumatic from fall
- s/p L hip total arthroplasty 11/23.
- WBAT to LLE with walker. THPs x6-8 weeks
- Post-op PT/OT - SNF
- pain control + bowel regimen
- ASA for DVT ppx x 4 weeks
- Orthopedics OP f/u. Maintain surgical dressing until 7-10 days post-op. Staple removal at 2 weeks post-op.
Left wrist swelling
- Xray pending; may need brace per Orthopedics
chronic Neuropathy
- patient reports worsening b/l LE neuropathy over past year
- continue trial low dose Gabapentin - increase as tolerated
Hypothyroidism
- Synthroid
Depression
- Wellbutrin/Zoloft
Acute blood loss anemia, operative loss
- monitor Hb
DVT ppx: ASA + SCDs
Code: Full
More than 30 minutes spent in discharge including
Final examination of the patient
Summarizing hospital stay
Instructions for continuing care to all relevant caregivers
Preparation of discharge records, prescriptions, and referral forms
Total time spent (in minutes): 41
Anticipated Discharge: Today
Subjective/Interval History
-
Date of Service: November 25, 2024
has some L wrist swelling, but otherwise no new complaints
Objective Data
-
Labs:
Laboratory Results
11/25/24
07:00
WBC 9.6
Hgb 9.0 L
Hct 27.1 L
Plt Count 129 L
Sodium 136
Potassium 4.0
Chloride 105
Carbon Dioxide 29
BUN 12
Creatinine 0.6
Glucose 110 H
Calcium 8.4
Vital Signs:
Vital Signs
Temp Pulse Resp BP Pulse Ox
99.1 F 84 18 111/48 94
11/25/24 08:19 11/25/24 08:19 11/25/24 08:19 11/25/24 08:19 11/25/24 08:19
I&O
11/24/24 11/25/24 11/26/24
06:59 06:59 06:59
Intake Total 390 / 390 980 / 980
Output Total 800 / 800
Balance -410 / -410 980 / 980
Physical Exam
-
General: No Apparent Distress
HEENT: Normocephalic and Atraumatic
Respiratory: Negative Wheezes
Cardiac: Regular Rhythm and S1/S2
GI: Soft
Genito-urinary: No Costovertebral Tender
Neuro: AO x 3
Psych: Calm
Data Reviewed
-
Total Time Spent with Patient (in minutes): 45
Labs: Labs Reviewed by me
--- NOTE | 2024-11-25 13:30 | W.DS.TRANS ---
DC Summary - Campus Coordinator
-
Discharge Instructions:
Discharge Diagnosis/Procedures Acute left femoral neck fracture, traumatic from
fall s/p L hip total arthroplasty 11/23.
Diet Regular
Activity As tolerated
Bathing Restrictions None
Other Services PT,OT
Instructions:
Stand-Alone Forms:
Changes to Home Medications: No
Discharge Medications:
DC Medications w/original date entered in [employer]
bupropion HCl 300 mg 24 hr tablet, extended release 300 mg PO DAILY Mental Health/Anxiety 03/27/20
sertraline 100 mg tablet 150 mg PO DAILY Mental Health/Anxiety 03/27/20
levothyroxine 100 mcg tablet 100 mcg PO DAILY Thyroid 02/23/22
lutein 40 mg capsule 40 mg PO DAILY Supplement 02/23/22
multivitamin 1 tab PO DAILY Supplement 02/23/22
loratadine 10 mg tablet (Claritin) 10 mg PO DAILY 11/22/24
acetaminophen 500 mg tablet (Tylenol Extra Strength) 1,000 mg (2 x 500 mg) PO TID #100 tabs 11/25/24
aspirin 325 mg tablet 325 mg PO DAILY #30 tabs 11/25/24
gabapentin 100 mg capsule 100 mg PO HS #30 caps 11/25/24
oxycodone 5 mg tablet 5 mg PO Q4HPRN PRN moderate pain #10 tabs 11/25/24
sennosides 8.6 mg-docusate sodium 50 mg tablet (Senna Plus) 1 tab PO BIDPRN PRN constipation #60 tabs 11/25/24
Home Medication Changes
Pending Results: No
Total time spent discharging patient (in min): 42
[2024-11-25] MEDS: FLUZONE HIGH-DOSE 2025-26 0.5 ML IM (15:09)
[2024-11-25 15:20] VITALS: BP 123/62
== END 2024-11-25 15:34 | DRG 522 ==
LOC: 2 SOUTH 14:38
PROVIDERS: Nurse Practitioner; Nurse Practitioner Family; Orthopaedic Surgery; ADMITTING PHYSICIAN Student in an Organized Health Care Education/Training Program; ATTENDING PHYSICIAN Internal Medicine; CONSULT PHYSICIAN Orthopaedic Surgery; EMERGENCY PHYSICIAN Emergency Medicine; FAMILY PHYSICIAN Internal Medicine
PROC: 0SRB04A Replacement of Left Hip Joint with Ceramic on Polyethylene Synthetic Substitute, Uncemented, Open Approach (ICD-10-PCS; 2024-11-23)
PROC: 3E02340 Introduction of Influenza Vaccine into Muscle, Percutaneous Approach (ICD-10-PCS; 2024-11-25)
DX: S72.012A Unspecified intracapsular fracture of left femur, initial encounter for closed fracture (principal); D62 Acute posthemorrhagic anemia; W01.0XXA Fall on same level from slipping, tripping and stumbling without subsequent striking against object, initial encounter; R22.32 Localized swelling, mass and lump, left upper limb; G57.93 Unspecified mononeuropathy of bilateral lower limbs; E03.9 Hypothyroidism, unspecified; M85.862 Other specified disorders of bone density and structure, left lower leg; F32.A Depression, unspecified; Z11.52 Encounter for screening for COVID-19; Z79.899 Other long term (current) drug therapy; Z87.891 Personal history of nicotine dependence; Z23 Encounter for immunization
CPT/HCPCS: 71045; 73110; 73502; 80048; 80053; 82805; 83735; 84484; 85025; 85027; 86850; 86870; 86900; 86901; 87502; 87811; 93005; 94640; 96361; 96374; 96375; 96376; 97116; 97163; 97167; 97530; 97535; 99285; C1713; C1776

== ENCOUNTER → 2024-11-27 11:08 | Outpatient (REF) | payer OTHER, MEDICARE, SELFPAY ==
[2024-11-27 12:38] LABS: Blood Urea Nitrogen 10 mg/dl (7-17); Calcium 8.8 mg/dl (8.4-10.2); Carbon Dioxide 31 mmol/L (22-30); Chloride 104 mmol/L (98-107); Glucose 106 mg/dl (70-99); Potassium 5.1 mmol/L (3.5-5.1); Sodium 136 mmol/L (135-145); eGFR > 60.00
[2024-11-27 13:18] LABS: Hematocrit 27.1 % (37.0-47.0); Hemoglobin 8.9 g/dL (12.0-16.0); Mean Corp Hgb Conc. 32.8 g/dL (33.0-37.0); Mean Corpuscular Volume 95.8 fL (81.0-99.0); Nucleated Red Blood Cells % 0 %; Platelet Count 195 10^3/uL (130-400); Red Cell Dist. Width 13.5 % (11.5-14.5)
== END ==
LOC: OLABP 11:08
PROVIDERS: ATTENDING PHYSICIAN Family Medicine
DX: D62 Acute posthemorrhagic anemia (principal); E03.9 Hypothyroidism, unspecified; G62.9 Polyneuropathy, unspecified
CPT/HCPCS: 36415; 80048; 85025